=== PATIENT | female | born 1980 | race American Indian/Alaskan Native ===

== ENCOUNTER 2018-03-08 12:19 | Emergency (ER) | payer SELFPAY ==
--- NOTE | 2018-03-08 12:49 | Emergency Department Report ---
ED Palpitations HPI - General Chief Complaint: Arrhythmia/Palpitations Stated Complaint: CHEST PAIN Time Seen by Provider: 03/08/18 12:43 Source: patient, EMS (verbal report received from EMS.ems notes not available at time of chart dictation) Mode of arrival: Stretcher Limitations: No Limitations - History of Present Illness Initial Comments: This is a 37-year-old female with a past medical history of paroxysmal SVT. She presents to the ER with an articulated complaint of resolved paroxysmal SVT. She's been having episodes since she was 13. She takes metoprolol. She does not have a private it administrator. She currently denies DVT, pulmonary embolus risk factors. She reports being in her usual state of health when she began to have a sensation of painless palpitations earlier on this morning. She denied headache, neck pain, chest pain, abdominal pain, irritative/ obstructive urinary symptoms. 911 was contacted and the patient received 6 mg of adenosine, which promptly resolved her symptoms and her arrhythmia. The patient is currently in normal sinus rhythm and has no complaints at this time. She denies dietary indiscretions, and she also denies and she denies stimulant ingestions. She currently has no complaints at this time. MD Complaint: rapid heart beat, "heart racing", palpitations, irregular heart beat -: Sudden Context: occured during rest Arrythmia History: SVT Associated Symptoms: denies other symptoms Treatments Prior to Arrival: adenosine - Related Data Allergies Allergy/AdvReac Type Severity Reaction Status Date / Time No Known Allergies Allergy Unverified 03/08/18 14:13 ED Review of Systems ROS: Stated complaint: CHEST PAIN Other details as noted in HPI Comment: All other systems reviewed and negative Cardiovascular: palpitations. denies: chest pain ED Physical Exam - General General appearance: alert, in no apparent distress - Head Head exam: Present: atraumatic, normocephalic - Eye Eye exam: Present: normal appearance, EOMI. Absent: nystagmus - ENT ENT exam: Present: normal exam, normal orophraynx, mucous membranes moist, normal external ear exam - Neck Neck exam: Present: normal inspection, full ROM. Absent: tenderness, meningismus - Respiratory Respiratory exam: Present: normal lung sounds bilaterally. Absent: respiratory distress - Cardiovascular Cardiovascular Exam: Present: regular rate, normal rhythm, normal heart sounds. Absent: bradycardia, tachycardia, irregular rhythm, systolic murmur, diastolic murmur, rubs, gallop - GI/Abdominal GI/Abdominal exam: Present: soft. Absent: distended, tenderness, guarding, rebound, rigid, pulsatile mass - Extremities Exam Extremities exam: Present: normal inspection, full ROM, normal capillary refill , other (2+ pulses noted in the bilateral upper, lower extremities. Compartments soft. No long bony tenderness. The pelvis is stable.). Absent: tenderness, pedal edema, joint swelling, calf tenderness - Back Exam Back exam: Present: normal inspection, full ROM. Absent: tenderness, CVA tenderness (R), paraspinal tenderness, vertebral tenderness - Neurological Exam Neurological exam: Present: alert, oriented X3, CN II-XII intact, normal gait, other (Extraocular movements intact. Tongue midline. No facial droop. Facial sensation intact to light touch in the V1, V2, V3 distribution bilaterally. 5 and 5 strength in 4 extremities.. Sensation is intact to light touch in 4 extremities.). Absent: motor sensory deficit - Psychiatric Psychiatric exam: Present: normal affect, normal mood - Skin Skin exam: Present: warm, dry, intact, normal color. Absent: rash ED Course Vital Signs 03/08/18 03/08/18 13:00 14:24 Temperature 98.3 F 98.3 F Pulse Rate 60 60 Respiratory 20 20 Rate Blood Pressure 112/71 Blood Pressure 111/71 [Left] O2 Sat by Pulse 99 99 Oximetry ED Medical Decision Making - Lab Data Result diagrams: 03/08/18 13:12 03/08/18 13:12 Vital Signs - 24 hr 03/08/18 03/08/18 13:00 14:24 Temperature 98.3 F 98.3 F Pulse Rate 60 60 Respiratory 20 20 Rate Blood Pressure 112/71 Blood Pressure 111/71 [Left] O2 Sat by Pulse 99 99 Oximetry Lab Results 03/08/18 03/08/18 03/08/18 Range/Units 13:12 13:12 13:12 WBC 4.5 (4.5-11.0) K/mm3 RBC 4.23 (3.65-5.03) M/mm3 Hgb 13.6 (10.1-14.3) gm/dl Hct 40.2 (30.3-42.9) % MCV 95 (79-97) fl MCH 32 (28-32) pg MCHC 34 (30-34) % RDW 12.6 L (13.2-15.2) % Plt Count 229 (140-440) K/mm3 Sodium 140 (137-145) mmol/L Potassium 4.5 (3.6-5.0) mmol/L Chloride 105.7 (98-107) mmol/L Carbon Dioxide 25 (22-30) mmol/L Anion Gap 14 mmol/L BUN 10 (7-17) mg/dL Creatinine 0.8 (0.7-1.2) mg/dL Estimated GFR > 60 ml/min BUN/Creatinine Ratio 13 % Glucose 92 (65-100) mg/dL Calcium 9.3 (8.4-10.2) mg/dL Magnesium 1.90 (1.7-2.3) mg/dL TSH (0.270-4.200) mlU/mL HCG, Quant (0-4) mIU/mL 03/08/18 03/08/18 Range/Units 13:12 13:12 WBC (4.5-11.0) K/mm3 RBC (3.65-5.03) M/mm3 Hgb (10.1-14.3) gm/dl Hct (30.3-42.9) % MCV (79-97) fl MCH (28-32) pg MCHC (30-34) % RDW (13.2-15.2) % Plt Count (140-440) K/mm3 Sodium (137-145) mmol/L Potassium (3.6-5.0) mmol/L Chloride (98-107) mmol/L Carbon Dioxide (22-30) mmol/L Anion Gap mmol/L BUN (7-17) mg/dL Creatinine (0.7-1.2) mg/dL Estimated GFR ml/min BUN/Creatinine Ratio % Glucose (65-100) mg/dL Calcium (8.4-10.2) mg/dL Magnesium (1.7-2.3) mg/dL TSH 0.887 (0.270-4.200) mlU/mL HCG, Quant < 2 (0-4) mIU/mL - EKG Data -: EKG Interpreted by Vt EKG shows normal: sinus rhythm, axis, intervals, QRS complexes, ST-T waves Rate: normal - EKG Data Interpretation: normal EKG - Medical Decision Making Differential diagnosis, including but not limited to: Paroxysmal SVT, anemia, thyroid derangement, , electrolyte derangement Assessment and plan: This is a 37-year-old female with a history of paroxysmal SVT, with resolved paroxysmal SVT after adenosine. She is afebrile with reassuring vital signs, has an unremarkable EKG at this time, and normal laboratory studies and no articulated medical complaints. She does not have any emergent condition currently demonstrated at this time, and is medically stable to be discharged to follow-up in outpatient primary care doctor or it administrator. Critical care attestation.: If time is entered above; I have spent that time in minutes in the direct care of this critically ill patient, excluding procedure time. ED Disposition Clinical Impression: SVT (supraventricular tachycardia) Disposition: DC- TO HOME OR SELFCARE Is pt being admited?: No Does the pt Need Aspirin: No Condition: Stable Instructions: Supraventricular Tachycardia (ED) Additional Instructions: Continue current outpatient medications. Follow-up with a primary care doctor or it administrator within the next month. Return to the ER right away with fevers , chills, lethargy, irritability, projectile vomiting, change in mental status, confusion, inability to tolerate liquid feedings. Referrals: [facility] [Provider Group] - 3-5 Days [facility] [Provider Group] - 3-5 Days
[2018-03-08 13:23] LABS: Hematocrit 40.2 % (30.3-42.9); Hemoglobin 13.6 gm/dl (10.1-14.3); Mean Corpuscular HGB Conc 34 % (30-34); Mean Corpuscular Hemoglobin 32 pg (28-32); Mean Corpuscular Volume 95 fl (79-97); Platelet Count 229 K/mm3 (140-440); Red Blood Count 4.23 M/mm3 (3.65-5.03); Red Cell Distribution Width 12.6 % (13.2-15.2)
[2018-03-08 13:43] LABS: BUN/Creatinine Ratio 13; Blood Urea Nitrogen 10 mg/dL (7-17); Calcium 9.3 mg/dL (8.4-10.2); Hemolysis Index 31
[2018-03-08 14:27] VITALS: BP 111/71
== END 2018-03-08 15:44 | disposition home or self-care (01) ==
LOC: ED 12:19
DX: I47.1 Supraventricular tachycardia (principal)
CPT/HCPCS: 36415; 80048; 83735; 84443; 84702; 85027; 93005; 93010